=== PATIENT | female | born 1995 | race Caucasian/White ===

== ENCOUNTER 2023-04-18 11:35 | Emergency (ER) | payer OTHER ==
[2023-04-18 13:36] LABS: Bilirubin Neg (Negative); Blood, Urine Negative (Negative); Clarity Slightly Cloudy (Clear); Glucose, Urine (Dipstick) Normal (Negative); Ketone, Urine Negative (Negative); Leukocyte 25 (Negative); Nitrite Negative (Negative); Protein, Urine (Dipstick) Negative (Neg-Trace); Specific Gravity, Urine 1.015 (1.005-1.030); Urobilinogen Normal mg/dL (Less than 2)
[2023-04-18 13:38] LABS: Pregnancy Test - Urine (BHCG) POSITIVE (Negative); Pregu Control Background? CLEAR/WHITE (CLR/WHITE); Pregu Control Bar Appear? YES (CONTROL BAR)
[2023-04-18 13:39] LABS: Specific Gravity 1.015 (1.002-1.036)
[2023-04-18 13:47] LABS: #Basophils 0.1 10x3/uL (0.0-0.2); #Eosinphils 0.1 10x3/uL (0.0-0.5); #Monocytes 0.6 10x3/uL (0.0-1.1); #Neutrophils 4.3 10x3/uL (1.5-8.4); %Basophils 0.7 % (0.0-2.0); %Lymphocytes 26.8 % (18.0-47.0); %Monocytes 8.7 % (0.0-10.0); %Neutrophils 62.5 % (40.0-75.0); Hematocrit 39.9 % (34.9-44.5); Hemoglobin 13.6 g/dL (12.0-15.5); Mean Corpuscular HGB CONC 34.1 g/dL (32.0-36.0); Mean Corpuscular Hemoglobin 29.1 pg (27.0-33.0); Mean Corpuscular Volume 85.4 fl (81.6-98.3); Mean Platelet Volume 9.6 fl (7.4-10.4); Platelet Count 291 10x3/uL (150-450); RBC Distribution Width 12.8 % (11.5-14.5); Red Blood Cell (RBC) Count 4.67 10x6/uL (3.90-5.03); White Blood Cell (WBC) Count 6.9 10x3/uL (3.5-10.5)
[2023-04-18 14:01] LABS: ALT (SGPT) 9 U/L (8-55); AST (SGOT) 15 U/L (5-34); Albumin 4.1 g/dL (3.5-5.0); Alkaline Phosphatase 40 U/L (40-110); Anion Gap 12 mmol/L (10-20); BUN (Urea Nitrogen) 8 mg/dL (7.0-18.7); Bilirubin, Total 0.3 mg/dL (0.2-1.2); Calc. Creatinine Clearance 0 mL/min (70-130); Calcium 8.5 mg/dL (7.8-10.44); Carbon Dioxide 23 mmol/L (22-29); Chloride 107 mmol/L (98-107); Estimated GFR 121; Globulin 1.6 g/dL (2.4-3.5); Glucose 70 mg/dL (70-105); Lipase 16 U/L (8-78); Potassium 4.3 mmol/L (3.5-5.1); Protein, Total 5.7 g/dL (6.0-8.3); Sodium 138 mmol/L (136-145)
[2023-04-18 14:06] LABS: RBC/HPF None Seen HPF (0-3)
[2023-04-18 14:07] LABS: Bacteria/HPF 3+ HPF (None Seen); CAUTI Indications for Culture Pelvic or flank pain; Mucous/LPF 2+ LPF (<2+); Sperm/HPF Rare HPF (None Seen); Urine Culture Reflex No No; WBC/HPF 0-3 HPF (0-3)
== END 2023-04-18 16:08 | disposition home or self-care (01) ==
LOC: CSHERS 11:35
DX: O99.891 Other specified diseases and conditions complicating pregnancy (principal); R20.2 Paresthesia of skin; M25.551 Pain in right hip; O23.41 Unspecified infection of urinary tract in pregnancy, first trimester; N39.0 Urinary tract infection, site not specified; Z3A.01 Less than 8 weeks gestation of pregnancy
CPT/HCPCS: 76856; 80053; 81001; 81025; 83690; 84702; 85025; 86900; 86901

== ENCOUNTER 2024-04-23 18:53 | Emergency (ER) | payer OTHER ==
[~2024-04-23 18:53] MED LIST: Iopamidol 300 61% 100 ML VIAL FS ONE
[2024-04-23] MEDS ORDERED: Ketorolac Tromethamine 30 MG (1 mL) VIAL ONE (20:23)
[2024-04-23 20:44] LABS: #Basophils 0.07 10x3/uL (0.0-0.2); #Eosinphils 0.22 10x3/uL (0.0-0.5); #Monocytes 1.04 10x3/uL (0.0-1.1); #Neutrophils 5.81 10x3/uL (1.5-8.4); %Basophils 0.7 % (0.0-2.0); %Eosinophils 2.2 % (0.0-6.0); %Lymphocytes 28.2 % (18.0-47.0); %Monocytes 10.4 % (0.0-10.0); %Neutrophils 57.9 % (40.0-75.0); Hematocrit 38.4 % (34.9-44.5); Hemoglobin 13.4 g/dL (12.0-15.5); Mean Corpuscular HGB CONC 34.9 g/dL (32.0-36.0); Mean Corpuscular Volume 85.9 fL (81.6-98.3); Mean Platelet Volume 9.5 fL (7.4-10.4); Platelet Count 291 10x3/uL (150-450); RBC Distribution Width 12.8 % (11.5-14.5); Red Blood Cell (RBC) Count 4.47 10x6/uL (3.90-5.03)
== END 2024-04-23 22:45 | disposition home or self-care (01) ==
LOC: CSHERS 18:53
DX: H60.91 Unspecified otitis externa, right ear (principal)
CPT/HCPCS: 70487; 85025; 86140; 96374; J1885; Q9967

== ENCOUNTER 2025-04-02 07:27 | Emergency (ER) | payer OTHER ==
[2025-04-02] MEDS ORDERED: predniSONE 20 MG TAB ONE (07:47)
[2025-04-02] MEDS ORDERED: Ketorolac Tromethamine 30 MG (1 mL) VIAL ONE (07:47)
== END 2025-04-02 08:05 | disposition home or self-care (01) ==
LOC: CSHERS 07:27
DX: M54.9 Dorsalgia, unspecified (principal)
CPT/HCPCS: 96372; 99283; J1885; J7512

== ENCOUNTER 2025-06-25 11:41 | Emergency (ER) | payer OTHER ==
[2025-06-25] MEDS ORDERED: HYDROcodone/Acetaminophen 10/325 mg Tablet ONE (13:46)
[2025-06-25] MEDS ORDERED: Ketorolac Tromethamine 30 MG (1 mL) VIAL ONE (13:46)
== END 2025-06-25 14:16 | disposition home or self-care (01) ==
LOC: CSHERS 11:41
DX: M54.50 Low back pain, unspecified (principal); G89.29 Other chronic pain
CPT/HCPCS: 96372; 99283; J1885; J2060